=== PATIENT | female | born 1990 | race Caucasian/White ===

== ENCOUNTER 2018-10-25 10:25 | Outpatient (CLI) | payer OTHER | END 2018-10-25 10:26 | disposition home or self-care (01) | LOC: CTENTCT 10:25 | PROVIDERS: ATTEND Otolaryngology Plastic Surgery within the Head & Neck | DX: J01.91 Acute recurrent sinusitis, unspecified (principal) | CPT/HCPCS: 70486 ==

== ENCOUNTER → 2018-10-31 | Day surgery (SDC) | payer OTHER ==
[2018-10-30 12:31] VITALS: BMI 25.0
[~2018-10-31] MED LIST: Dexamethasone 20 MG/5 ML VIAL ONE; Fentanyl 100 MCG/2 ML VIAL ONE; Ferric Subsulfate 8 ML BOT ONE; Glycopyrrolate 0.2 MG/ML 5 ML SYRINGE ONE; HYDROmorphone 2 MG/ML VIAL ONE; Hydrocodone-Acetamin 15 ML UDCUP ONE; Lidocaine 1% PF 5 ML VIAL ONE; Lidocaine 1% w/Epinephrine 1:100K 20 ML VIAL ONE; Midazolam HCl 2 mg/2 ml Vial ONE; Ondansetron PF 4 MG/2 ML Vial ONE; Oxymetazoline HCl 0.05% ( 15 ML ) ONE; PROPOFOL 200 MG/20 ML VIAL ONE; Rocuronium Bromide 10 MG/ML (10ML VIAL) ONE
--- NOTE | 2018-11-01 12:31 | OP ---
DATE OF PROCEDURE: 10/31/2018 PREOPERATIVE DIAGNOSES: 1. Chronic rhinosinusitis. 2. Bilateral inferior turbinate hypertrophy. 3. Nasal obstruction. 4. Chronic adenotonsillitis. 5. Adenotonsillar hypertrophy. POSTOPERATIVE DIAGNOSES: 1. Chronic rhinosinusitis. 2. Bilateral inferior turbinate hypertrophy. 3. Nasal obstruction. 4. Chronic adenotonsillitis. 5. Adenotonsillar hypertrophy. PROCEDURE PERFORMED: 1. Bilateral endoscopic sinus surgery, total ethmoidectomies. 2. Bilateral endoscopic sinus surgery maxillary antrostomies. 3. Bilateral endoscopic sinus surgery, frontal sinusotomies. 4. Bilateral endoscopic sinus surgery, sphenoidotomies. 5. Bilateral inferior turbinate submucosal resection. 6. Tonsillectomy and adenoidectomy. ESTIMATED BLOOD LOSS: 50 mL. COMPLICATIONS: None. ANESTHESIA: GETA. PROCEDURE IN DETAIL: After consent was obtained, the patient was identified, brought to the operating room, and placed on the operating table in the supine position. General endotracheal anesthesia and intravenous access were obtained and we proceeded with positioning the patient for oropharyngeal surgery. Oropharyngeal exposure was obtained with a Rita-Ford mouth gag after a head drape was placed and secured with a towel clip. The Rita-Ford mouth gag was then suspended from the Alva tray and palatal elevation was achieved with a red rubber catheter. The right tonsil was addressed first. We used a curved Allis to grasp the tonsil and retract it medially as an anterior pillar incision was made. The retrotonsillar fascial plane was then established and blunt dissection was performed with the suction cautery. Blood vessels were anticipated, identified, and cauterized as they were encountered. Ultimately, dissection was carried to the posterior tonsillar pillar mucosa which was incised hemostatically, as well as the base of tongue connection. The tonsil was then passed off as a specimen and bleeding points within the tonsillar bed were cauterized under direct visualization. We subsequently turned our attention to the contralateral side, where using a similar technique, a near identical procedure was performed. Again, the tonsil was grasped and retracted medially with a curved Allis. The retrotonsillar fascial plane was established and while the anterior pillar was retracted medially. The hemostatic blunt dissection of the tonsil with a suction cautery was performed with blood vessels anticipated, identified, and cauterized as they were encountered. Again, dissection continued to the base of tongue and posterior tonsillar pillar mucosa which was incised in a hemostatic fashion. The tonsillar beds were then carefully inspected and bleeding points were identified and cauterized with a suction cautery. After this portion of the procedure, hemostasis was completely obtained. Under direct mirror visualization, we visualized the adenoid pad. Under direct mirror visualization, we removed the bulk of the adenoid tissue with the adenoid curette. We then packed the nasopharynx for an appropriate period of time with Ads-Wmorbnncet-vumegavmy tonsillar sponges. After a period of observation, we removed the pack. Under indirect mirror visualization, we obtained hemostasis and vaporization of residual adenoid tissue with electrocautery. The patient's oral cavity was copiously irrigated with iced saline and subsequently suctioned. After completion of the procedure, the nasal cavity and oropharynx were irrigated and suctioned as were the gastric contents. The patient was then awakened and transferred to the recovery room where the patient remained in stable condition prior to discharge to Day Stay. Following this, the patient was then placed in the beach-chair position and Afrin pledgets were placed in the patient's nose. The patient was then prepped and draped for standard surgical procedure for the nasal cavity. Following this, a 0-degree endoscope was advanced in the nasal cavity. After Afrin pledgets were removed, 1% lidocaine with 1:100,000 epinephrine was injected into the inferior turbinates, middle turbinates, and lateral nasal wall bilaterally. Following this, the middle turbinates were gently medialized using a [place] elevator . Following this, the uncinate process was identified and was anteriorly fractured using the ball-ended probe bilaterally. The uncinate process was removed using the straight microdebrider and up-biting Blakesley forceps. Following this, the natural maxillary sinus ostia was identified and was widened using the curved microdebrider and the straight Blakesley forceps bilaterally. Following this, the ethmoidal bulla was identified and was punctured on its medial and inferior aspects with microdebrider and was removed using the microdebrider and the Blakesley forceps. Following this, the grand lamella was identified and was punctured into the posterior ethmoidal cells using the microdebrider bilaterally. Working from posterior to anterior, the ethmoidal cells were opened in a mucosal sparing technique. Following this, the sphenoid sinuses were approached through the ethmoidectomies, where the superior turbinate attachment to the posterior nasal wall was identified staying just medial and inferior to this, sphenoidotomies were created bilaterally. Following this, the 0-degree was used to widen the sphenoidotomies medially and inferiorly bilaterally. Following this, a 45-degree endoscope was then used to visualize the frontal sinus recess and frontal sinus ostia bilaterally. These were widened using the curved microdebrider bilaterally. Following this, the inferior turbinates were then punctured on the anterior and inferior aspects with mucosal microdebrider blade and submucosal resection was performed of the anterior and inferior portions of the inferior turbinates. Following this, the nasal cavity was irrigated. Mirapex was placed within the middle meatus. The patient tolerated the procedure well. Job ID: [id number]
== END ==
LOC: SDC 08:18
PROVIDERS: ATTEND Otolaryngology Plastic Surgery within the Head & Neck
PROC: 099T8ZZ Drainage of Left Frontal Sinus, Via Natural or Artificial Opening Endoscopic (ICD-10-PCS; principal; 2018-10-31)
PROC: 0CTQXZZ Resection of Adenoids, External Approach (ICD-10-PCS; principal; 2018-10-31)
PROC: 099Q8ZZ Drainage of Right Maxillary Sinus, Via Natural or Artificial Opening Endoscopic (ICD-10-PCS; principal; 2018-10-31)
PROC: 09TV8ZZ Resection of Left Ethmoid Sinus, Via Natural or Artificial Opening Endoscopic (ICD-10-PCS; principal; 2018-10-31)
PROC: 09TL7ZZ Resection of Nasal Turbinate, Via Natural or Artificial Opening (ICD-10-PCS; principal; 2018-10-31)
PROC: 099X8ZZ Drainage of Left Sphenoid Sinus, Via Natural or Artificial Opening Endoscopic (ICD-10-PCS; principal; 2018-10-31)
PROC: 0CTPXZZ Resection of Tonsils, External Approach (ICD-10-PCS; principal; 2018-10-31)
PROC: 099R8ZZ Drainage of Left Maxillary Sinus, Via Natural or Artificial Opening Endoscopic (ICD-10-PCS; principal; 2018-10-31)
PROC: 09TU8ZZ Resection of Right Ethmoid Sinus, Via Natural or Artificial Opening Endoscopic (ICD-10-PCS; principal; 2018-10-31)
PROC: 099W8ZZ Drainage of Right Sphenoid Sinus, Via Natural or Artificial Opening Endoscopic (ICD-10-PCS; principal; 2018-10-31)
PROC: 099S8ZZ Drainage of Right Frontal Sinus, Via Natural or Artificial Opening Endoscopic (ICD-10-PCS; principal; 2018-10-31)
DX: J32.4 Chronic pansinusitis (principal); J34.2 Deviated nasal septum; J35.03 Chronic tonsillitis and adenoiditis; J34.89 Other specified disorders of nose and nasal sinuses; J34.3 Hypertrophy of nasal turbinates; F17.200 Nicotine dependence, unspecified, uncomplicated; Z79.2 Long term (current) use of antibiotics; Z79.899 Other long term (current) drug therapy; Z88.2 Allergy status to sulfonamides; Z98.890 Other specified postprocedural states
CPT/HCPCS: 85014; 88304; J1100; J1170; J2001; J2250; J2405; J2704; J3010